=== PATIENT | female | born 1955 | race Caucasian/White ===

== ENCOUNTER 2020-11-12 09:07 | Outpatient (CLI) | payer BC, MEDICARE | END 2020-11-12 09:08 | disposition home or self-care (01) | LOC: CSHMAMMO 09:07 | PROVIDERS: ATTEND Family Medicine | DX: Z12.31 Encounter for screening mammogram for malignant neoplasm of breast (principal); Z13.820 Encounter for screening for osteoporosis; M81.0 Age-related osteoporosis without current pathological fracture; M85.88 Other specified disorders of bone density and structure, other site | CPT/HCPCS: 77063; 77067; 77080 ==

== ENCOUNTER 2022-04-19 08:11 | Outpatient (CLI) | payer BC | END 2022-04-19 08:12 | disposition home or self-care (01) | LOC: CSHMAMMO 08:11 | PROVIDERS: ATTEND Family Medicine | DX: Z12.31 Encounter for screening mammogram for malignant neoplasm of breast (principal) | CPT/HCPCS: 77063; 77067 ==